=== PATIENT | female | born 1980 | race American Indian/Alaskan Native ===

== ENCOUNTER 2021-11-16 20:58 | Emergency (ER) | payer MEDICARE ==
[2021-11-16 22:18] VITALS: BP 137/86
[2021-11-16] MEDS ORDERED: IPRATROPIUM/ALBUTEROL SULFATE 3 ML AMPUL.NEB IH ONE (22:39)
[2021-11-16] MEDS ORDERED: methylPREDNISolone Sod Succinate 125 MG/2 ML INJ IM ONE (22:39)
--- NOTE | 2021-11-16 22:39 | XRay Report ---
CHEST PA AND LATERAL VIEWS INDICATION: cough, SARITA/SOB. COMPARISON: None. FINDINGS: Support devices: None. Heart: Within normal limits. Lungs/Pleura: There are diffuse predominantly reticular bilateral pulmonary opacities with suggestion of peribronchial cuffing. No pleural abnormality. IMPRESSION: 1. Probable diffuse lower airways disease/bronchiolitis. Signer Name: Monty Mendoza MD Signed: 11/16/2021 10:35 PM Workstation Name: [id number]
--- NOTE | 2021-11-16 23:45 | Emergency Department Report ---
- General Chief Complaint: Upper Respiratory Infection Stated Complaint: DRY COUGH,SARITA,ASTHMA Source: patient Mode of arrival: Ambulatory Limitations: No Limitations - History of Present Illness Initial Comments: Patient is a 41-year-old -[place] Citizen female with a history of asthma who presents to the ED with complaint of acute onset persistent nasal and sinus congestion, persistent dry cough, shortness of breath and wheezing for the last 1 week. Patient states that in the last 3 days she has not been able to sleep because of persistent shortness of breath and cough. Patient states that although she has a history of asthma, she has not used any albuterol inhaler because she ran out of the 1 she had about a year ago. Patient denies chest pain, dizziness, syncope, fever, chills, nausea and vomiting, abdominal pain, diarrhea, sore throat, change in vision, dysuria, urinary frequency and urgency, fall or heavy lifting. MD Complaint: cough, nasal congestion, sinus pain, other (Wheezing and shortness of breath) -: Sudden, week(s) (1) Severity: moderate Severity scale (0 -10): 4 Quality: dull, other (Tightness) Consistency: constant Improves With: nothing Worsens With: nothing Context: other (History of asthma) Associated Symptoms: denies other symptoms, rhinorrhea, nasal congestion, cough, shortness of breath, other (Chest tightness). denies: fever, chills, headache, sore throat, stiff neck, chest pain, abdominal pain, nausea, vomiting, diarrhea, dysuria, right sweats, weight loss, epistaxis, hoarseness, ear pain Treatments Prior to Arrival: none - Related Data Previous Rx's Medication Instructions Recorded Last Taken Type Albuterol Sulfate [Proventil Hfa] 1 - 2 puff IH Q6H PRN #1 inh 11/16/21 Unknown Rx Benzonatate [Tessalon Perles] 100 mg PO Q8HR #30 cap 11/16/21 Unknown Rx Cetirizine HCl [Zyrtec 10mg tab] 10 mg PO DAILY #30 tab 11/16/21 Unknown Rx Doxycycline Hyclate 100 mg PO Q12H #20 cap 11/16/21 Unknown Rx methylPREDNISolone [Medrol 4MG 4 mg PO DAILY #21 tab 11/16/21 Unknown Rx DOSEPAK (21 tabs)] Allergies Allergy/AdvReac Type Severity Reaction Status Date / Time No Known Allergies Allergy Verified 11/16/21 22:10 ED Review of Systems ROS: Stated complaint: DRY COUGH,SARITA,ASTHMA Other details as noted in HPI Constitutional: denies: chills, fever Eyes: denies: eye pain, eye discharge, vision change ENT: congestion. denies: ear pain, throat pain Respiratory: cough, shortness of breath, wheezing Cardiovascular: denies: chest pain, palpitations Endocrine: no symptoms reported Gastrointestinal: denies: abdominal pain, nausea, diarrhea Genitourinary: denies: urgency, dysuria, discharge Musculoskeletal: denies: back pain, joint swelling, arthralgia Skin: denies: rash, lesions Neurological: denies: headache, weakness, paresthesias Psychiatric: denies: anxiety, depression Hematological/Lymphatic: denies: easy bleeding, easy bruising ED Past Medical Hx - Past Medical History Hx Asthma: Yes - Surgical History Past Surgical History?: Yes Additional Surgical History: C-Sec - Medications Home Medications: Home Medications Medication Instructions Recorded Confirmed Last Taken Type Albuterol Sulfate [Proventil Hfa] 1 - 2 puff IH Q6H PRN #1 inh 11/16/21 Unknown Rx Benzonatate [Tessalon Perles] 100 mg PO Q8HR #30 cap 11/16/21 Unknown Rx Cetirizine HCl [Zyrtec 10mg tab] 10 mg PO DAILY #30 tab 11/16/21 Unknown Rx Doxycycline Hyclate 100 mg PO Q12H #20 cap 11/16/21 Unknown Rx methylPREDNISolone [Medrol 4MG 4 mg PO DAILY #21 tab 11/16/21 Unknown Rx DOSEPAK (21 tabs)] ED Physical Exam - General Limitations: No Limitations General appearance: alert, in no apparent distress - Head Head exam: Present: atraumatic, normocephalic, normal inspection - Eye Eye exam: Present: normal appearance, PERRL, EOMI Pupils: Present: normal accommodation - ENT ENT exam: Present: normal orophraynx, mucous membranes moist, TM's normal bilaterally, normal external ear exam, other (Grossly congested nasal passages) - Neck Neck exam: Present: normal inspection, full ROM. Absent: tenderness - Respiratory Respiratory exam: Present: wheezes (Mildly diffuse coarse wheezes throughout). Absent: normal lung sounds bilaterally, respiratory distress, rales, rhonchi, stridor, chest wall tenderness, accessory muscle use, decreased breath sounds, prolonged expiratory - Cardiovascular Cardiovascular Exam: Present: regular rate, normal rhythm, normal heart sounds. Absent: systolic murmur, diastolic murmur, rubs, gallop - GI/Abdominal GI/Abdominal exam: Present: soft, normal bowel sounds. Absent: distended, tenderness, guarding, rebound, hyperactive bowel sounds, hypoactive bowel sounds, organomegaly, mass - Extremities Exam Extremities exam: Present: normal inspection, full ROM, normal capillary refill - Back Exam Back exam: Present: normal inspection, full ROM. Absent: tenderness, CVA tenderness (R), CVA tenderness (L), muscle spasm, paraspinal tenderness, vertebral tenderness - Neurological Exam Neurological exam: Present: alert, oriented X3, CN II-XII intact, normal gait, reflexes normal - Psychiatric Psychiatric exam: Present: normal affect, normal mood - Skin Skin exam: Present: warm, dry, intact, normal color. Absent: rash ED Course Vital Signs 11/16/21 22:10 Temperature 98.4 F Pulse Rate 82 Respiratory 17 Rate Blood Pressure 137/86 [Right] O2 Sat by Pulse 100 Oximetry ED Medical Decision Making - Radiology Data Radiology results: report reviewed, image reviewed [facility] [address] [place] [address] XRay Report Signed Patient: ANNABEL AGUILLON MR #: [id number] : 1980 Acct:[id number] Age/Sex: 41 / F ADM Date: 11/16/21 Loc: ED Attending Dr: Ordering Physician: KAN CRAO Date of Service: 11/16/21 Procedure(s): XR chest routine 2V Accession Number(s): [id number] cc: KAN CARO Fluoro Time In Minutes: CHEST PA AND LATERAL VIEWS INDICATION: cough, SARITA/SOB. COMPARISON: None. FINDINGS: Support devices: None. Heart: Within normal limits. Lungs/Pleura: There are diffuse predominantly reticular bilateral pulmonary opacities with suggestion of peribronchial cuffing. No pleural abnormality. IMPRESSION: 1. Probable diffuse lower airways disease/bronchiolitis. Signer Name: Monty Mendoza MD Signed: 11/16/2021 10:35 PM Workstation Name: [id number] Transcribed By: YASMANY Dictated By: Monty Mendoza MD Electronically Authenticated By: Monty Mendoza MD Signed Date/Time: 11/16/212234 DD/ 33 TD/TT: - Medical Decision Making This is a 41-year-old -[place] Citizen female with a history of asthma who presents to the ED with complaint of acute onset persistent nasal and sinus congestion, persistent dry cough, shortness of breath and wheezing for the last 1 week. Patient states that in the last 3 days she has not been able to sleep because of persistent shortness of breath and cough. Patient states that although she has a history of asthma, she has not used any albuterol inhaler because she ran out of the only one she had about a year ago. In the ED, patient is alert and oriented x3 and is not in any distress. Patient is hemodynamically stable with oxygen saturation of 100% in room air. Patient was treated in the ED with DuoNeb and Solu-Medrol in the ED. Chest x-ray showed diffuse predominantly reticular bilateral pulmonary opacities with suggestion of peribronchial cuffing. No pleural abnormality. On reevaluation, patient wheezing resolved with medication. Patient felt better and was discharged home on medications. Patient was advised to follow-up with her primary care physician in 5 to 7 days for reevaluation or return to the ED immediately if symptoms get worse. - Differential Diagnosis Asthma; bronchitis; URI; pneumonia; Critical care attestation.: If time is entered above; I have spent that time in minutes in the direct care of this critically ill patient, excluding procedure time. ED Disposition Clinical Impression: Acute upper respiratory infection, Acute bronchitis with asthma with acute exacerbation Disposition: 01 HOME / SELF CARE / HOMELESS Is pt being admited?: No Does the pt Need Aspirin: No Condition: Stable Instructions: Upper Respiratory Infection, Adult, [id number], Cough, Adult, [id number], Acute Bronchitis, Adult, [id number], Asthma, Adult, [id number] Additional Instructions: Chest x-ray showed probable diffuse lower airways disease/bronchiolitis. Therefore take medication with food, drink plenty of fluids and follow-up with your primary care physician in 7 to 10 days for reevaluation. Return to the ED immediately if symptoms get worse. Prescriptions: Doxycycline Hyclate 100 mg PO Q12H #20 cap methylPREDNISolone [Medrol 4MG DOSEPAK (21 tabs)] 4 mg PO DAILY #21 tab Albuterol Sulfate [Proventil Hfa] 1 - 2 puff IH Q6H PRN #1 inh PRN Reason: Shortness Of Breath Benzonatate [Tessalon Perles] 100 mg PO Q8HR #30 cap Cetirizine HCl [Zyrtec 10mg tab] 10 mg PO DAILY #30 tab Referrals: [facility] [Provider Group] - 3-5 Days Forms: Work/School Release Form(ED) Time of Disposition: 23:44 Print Language: CAMBODIAN
== END 2021-11-17 00:24 | disposition home or self-care (01) ==
LOC: ED 20:58
DX: J06.9 Acute upper respiratory infection, unspecified (principal); J45.901 Unspecified asthma with (acute) exacerbation
CPT/HCPCS: 71046; 94640; 96372; 99283; J2930

== ENCOUNTER 2022-06-16 01:04 | Emergency (ER) | payer MEDICARE ==
--- NOTE | 2022-06-16 04:11 | XRay Report ---
CHEST 2 VIEWS INDICATION / CLINICAL INFORMATION: Cough fever. COMPARISON: 01/01/2022 FINDINGS: SUPPORT DEVICES: None. HEART / MEDIASTINUM: No significant abnormality. LUNGS / PLEURA: Central peribronchial thickening most likely representing bronchitis/bronchiolitis wi thout evidence for superimposed bacterial pneumonia. No pneumothorax. ADDITIONAL FINDINGS: None IMPRESSION: 1. Central peribronchial thickening most likely representing bronchitis/bronchiolitis without evidenc e for superimposed bacterial pneumonia. Signer Name: Timoteo Henriquez MD Signed: 06/16/2022 4:07 AM Workstation Name: [email or web address] [email or web address]
--- NOTE | 2022-06-16 04:33 | Emergency Department Report ---
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 Patient concerned for COVID19. Patient was diagnosed with COVID19, 1 year ago. Patient denies chest pain no nausea or vomiting. Primary complaint is malaise productive cough since head congestion and pressure. Symptoms are exacerbated by activity. Symptoms are relieved by nothing tried. - Related Data Previous Rx's Medication Instructions Recorded Last Taken Type Albuterol Sulfate [Proventil Hfa] 1 - 2 puff IH Q6H PRN #1 inh 11/16/21 Unknown Rx Benzonatate [Tessalon Perles] 100 mg PO Q8HR #30 cap 11/16/21 Unknown Rx Cetirizine HCl [Zyrtec 10mg tab] 10 mg PO DAILY #30 tab 11/16/21 Unknown Rx Doxycycline Hyclate 100 mg PO Q12H #20 cap 11/16/21 Unknown Rx methylPREDNISolone [Medrol 4MG 4 mg PO DAILY #21 tab 11/16/21 Unknown Rx DOSEPAK (21 tabs)] Albuterol Mdi (or & Nicu Only) 2 puff IH QID PRN #8.5 gram 06/16/22 Unknown Rx [ProAir HFA Inhaler] Ibuprofen [Motrin 800 MG tab] 800 mg PO Q8HR PRN #30 tablet 06/16/22 Unknown Rx predniSONE [Deltasone] 20 mg PO QDAY 5 Days #5 tab 06/16/22 Unknown Rx Allergies Allergy/AdvReac Type Severity Reaction Status Date / Time No Known Allergies Allergy Verified 11/16/21 22:10 ED Review of Systems ROS: Stated complaint: BODY PAIN COUGH/CHILLS Other details as noted in HPI Constitutional: chills, malaise. denies: fever Eyes: denies: eye pain, eye discharge, vision change ENT: dental pain, congestion. denies: ear pain, throat pain Respiratory: denies: cough, shortness of breath, stridor, wheezing Cardiovascular: denies: chest pain, palpitations, orthopnea Endocrine: no symptoms reported Gastrointestinal: denies: abdominal pain, nausea, diarrhea Genitourinary: denies: urgency, dysuria, discharge ED Past Medical Hx - Past Medical History Hx Asthma: Yes - Surgical History Additional Surgical History: C-Sec - Medications Home Medications: Home Medications Medication Instructions Recorded Confirmed Last Taken Type Albuterol Sulfate [Proventil Hfa] 1 - 2 puff IH Q6H PRN #1 inh 11/16/21 Unknown Rx Benzonatate [Tessalon Perles] 100 mg PO Q8HR #30 cap 11/16/21 Unknown Rx Cetirizine HCl [Zyrtec 10mg tab] 10 mg PO DAILY #30 tab 11/16/21 Unknown Rx Doxycycline Hyclate 100 mg PO Q12H #20 cap 11/16/21 Unknown Rx methylPREDNISolone [Medrol 4MG 4 mg PO DAILY #21 tab 11/16/21 Unknown Rx DOSEPAK (21 tabs)] Albuterol Mdi (or & Nicu Only) 2 puff IH QID PRN #8.5 gram 06/16/22 Unknown Rx [ProAir HFA Inhaler] Ibuprofen [Motrin 800 MG tab] 800 mg PO Q8HR PRN #30 tablet 06/16/22 Unknown Rx predniSONE [Deltasone] 20 mg PO QDAY 5 Days #5 tab 06/16/22 Unknown Rx ED Physical Exam - General Limitations: No Limitations ED Course Vital Signs 06/16/22 01:06 Temperature 99.7 F H Pulse Rate 96 H Respiratory 16 Rate Blood Pressure 133/95 [Right] O2 Sat by Pulse 100 Oximetry ED Medical Decision Making - Radiology Data Radiology results: report reviewed, image reviewed CHEST 2 VIEWS INDICATION / CLINICAL INFORMATION: Cough fever. COMPARISON: 01/01/2022 FINDINGS: SUPPORT DEVICES: None. HEART / MEDIASTINUM: No significant abnormality. LUNGS / PLEURA: Central peribronchial thickening most likely representing bronchitis/bronchiolitis without evidence for superimposed bacterial pneumonia. No pneumothorax. ADDITIONAL FINDINGS: None IMPRESSION: 1. Central peribronchial thickening most likely representing bronchitis/bronchiolitis without evidence for superimposed bacterial pneumonia. Signer Name: Timoteo Quezada MD Signed: 06/16/2022 4:07 AM Workstation Name: [id number] Transcribed By: Dictated By: TIMOTEO QUEZADA MD Electronically Authenticated By: TIMOTEO QUEZADA MD Signed Date/Time: 06/16/22406 DD/ 6 TD/TT: - Medical Decision Making Chest x-ray consistent with bronchiolitis there is no wheezing. Patient advises no chest pain no dizziness or lightheadedness at this time. Plan DC to home with prescriptions. Follow-up primary care doctor in 2 to 3 days. Patient verbalized agreement and understanding of discharge plan. Patient DC'd home in stable condition at this time. Critical care attestation.: If time is entered above; I have spent that time in minutes in the direct care of this critically ill patient, excluding procedure time. ED Disposition Clinical Impression: Bronchiolitis Disposition: 01 HOME / SELF CARE / HOMELESS Is pt being admited?: No Does the pt Need Aspirin: No Condition: Stable Instructions: Viral Respiratory Infection Test Additional Instructions: Take medications as prescribed, follow-up with your primary care doctor in 2 to 3 days. Return to emergency department should symptoms worsen. Prescriptions: predniSONE [Deltasone] 20 mg PO QDAY 5 Days #5 tab Ibuprofen [Motrin 800 MG tab] 800 mg PO Q8HR PRN #30 tablet PRN Reason: pain fever Albuterol Mdi (or & Nicu Only) [ProAir HFA Inhaler] 2 puff IH QID PRN #8.5 gram PRN Reason: Shortness Of Breath Referrals: STEVEN OSHEA MD [Staff Physician] - 3-5 Days Forms: Work/School Release Form(ED) Time of Disposition: 04:44
[2022-06-16 05:49] VITALS: BP 128/88
== END 2022-06-16 05:07 | disposition home or self-care (01) ==
LOC: ED 01:04
DX: J21.9 Acute bronchiolitis, unspecified (principal); J45.909 Unspecified asthma, uncomplicated; Z98.890 Other specified postprocedural states; Z79.899 Other long term (current) drug therapy
CPT/HCPCS: 71046; 99283